=== PATIENT | male | born 1965 | race Caucasian/White ===

== ENCOUNTER 2022-01-16 09:53 | Emergency (ER) | payer BC ==
[~2022-01-16] VITALS: Ht 165.1 cm; Wt 85.0 kg
[2022-01-16] MEDS ORDERED: KETOROLAC 60MG/2ML VIAL IM STA (12:45)
[2022-01-16 12:50] VITALS: BP 126/78
[2022-01-16] MEDS ORDERED: NAPR-681 PO (13:42)
[2022-01-16] MEDS ORDERED: CYCL5TAB PO (13:42)
== END 2022-01-16 14:06 | disposition home or self-care (01) ==
LOC: ER 10:03
DX: M54.41 Lumbago with sciatica, right side (principal)
CPT/HCPCS: 96372; 99283